=== PATIENT | male | born 1995 | race Caucasian/White ===

== ENCOUNTER 2017-07-15 22:54 | Emergency (ER) | payer BC, OTHER ==
[~2017-07-15] VITALS: Ht 180.3 cm; Wt 80.9 kg
[2017-07-15 23:00] VITALS: TEMP 36.9; Ht 180.3 cm; Wt 80.9 kg
[2017-07-15 23:10] VITALS: O2SAT 98
[2017-07-16 00:10] LABS: BUN/CREATININE RATIO 15.1 (10-20); CALCIUM 8.9 mg/dl (8.5-10.1); CREATININE 1.12 mg/dl (0.60-1.40); POTASSIUM 3.9 mmol/L (3.5-5.1)
--- NOTE | 2017-07-16 06:00 | EMERGENCY ROOM VISIT NOTE ---
History Report prepared by Ingrid: Michelle Carreon Under the Supervision of: Dr. Indira Ralph D.O. First contact with patient: 23:27 Chief Complaint: ALCOHOL OVERDOSE Stated Complaint: ALCOHOL OVERDOSE Nursing Triage Summary: Patient presents S for evaluation of alcohol overdose. Patient was found asleep on a bench. Denies any complaints. Admits to drinking ETOH. Denies drug use. 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 The patient presents to the ED by EMS. He was found sleeping on a park bench. He denies any back pain, abdominal pain, or other complaints. The history is limited due to the patient's intoxication. Patient denies any trauma. States he lay down to sleep. Source of History: patient, nursing staff History Limited By: intoxication Onset: CORPORATE AFFAIRS MANAGER Position: other (global) Quality: other (alcohol intoxication) Timing: other (persistent) Associated Symptoms: No abdominal pain, No back pain Review of Systems Limited due to intoxication. Past Medical & Surgical Medical Problems: (1) No pertinent past medical history Family History No pertinent family history stated. Social History Smoking Status: Never Smoker Occupation Status: [employer] student Current/Historical Medications No Active Prescriptions or Reported Meds Allergies Coded Allergies: No Known Allergies (Unverified , 07/15/17) Physical Exam Vital Signs Date Time Temp Pulse Resp B/P (MAP) Pulse Ox O2 Delivery O2 Flow Rate FiO2 07/16/17 06:14 103 07/16/17 06:06 92 18 150/70 98 Room Air 07/16/17 04:45 87 18 129/68 98 Room Air 07/16/17 03:20 86 18 93/78 98 Room Air 07/16/17 02:10 72 07/16/17 00:08 75 18 122/57 98 Room Air 07/15/17 23:10 98 Room Air 07/15/17 23:07 95 07/15/17 23:00 36.9 86 18 135/89 98 Room Air Physical Exam GENERAL: alert, well appearing, well nourished, no distress, non-toxic EYE EXAM: normal conjunctiva, PERRL and EOM's grossly intact OROPHARYNX: no exudate, no erythema, lips, buccal mucosa, and tongue normal and mucous membranes are moist NECK: supple, no nuchal rigidity, no adenopathy, non-tender LUNGS: Clear to auscultation. Normal chest wall mechanics, no wheezes/rhonchi/ rales HEART: no murmurs, S1 normal and S2 normal, no ecchymosis or crepitus ABDOMEN: abdomen soft, non-tender, normo-active bowel sounds, no masses, no rebound or guarding. BACK: Back is symmetrical on inspection and there is no deformity, no midline tenderness, no CVA tenderness. SKIN: no rashes and no bruising EXTREMITIES: Normal ROM. No deformity. Normal pulses. No evidence of trauma. NEURO EXAM: Normal sensorium, cranial nerves II-XII grossly intact, normal speech, no gross weakness of arms, no gross weakness of legs. Medical Decision & Procedures Laboratory Results 07/15/17 23:10 Test 07/15/17 23:10 Anion Gap 11.0 mmol/L (3-11) Est Creatinine Clear Calc Drug Dose 112.9 ml/min Estimated GFR () 109.8 Estimated GFR (Non- 94.7 BUN/Creatinine Ratio 15.1 (10-20) Calcium Level 8.9 mg/dl (8.5-10.1) Ethyl Alcohol mg/dL 227.0 mg/dl (0-3) Laboratory results per my review. ED Course 2339: The patient was evaluated in room B11A. A complete history and physical exam was performed. 0626: Upon reevaluation, the patient has no complaints. I discussed the findings and the treatment plan with the patient. He verbalizes agreement and understanding. He was discharged home. Medical Decision Differential diagnosis includes etiologies such as alcohol intoxication, toxicologic, infection, hypoglycemia, electrolyte abnormalities, cardiac sources , intracerebral event, neurologic, as well as others were entertained. Patient monitored here and reevaluated. No history to suggest trauma and no evidence of trauma on exam. Discussed with patient appropriate use of alcohol, symptoms to watch and return for, he verbalized understanding was agreeable with plan. Patient and related here with steady gait and was tolerating by mouth prior to discharge. I have low suspicion for any additional traumatic injury. Medication Reconcilliation Current Medication List: was personally reviewed by me Blood Pressure Screening Patient's blood pressure: Normal blood pressure Blood pressure disposition: Did not require urgent referral Impression Primary Impression: Alcohol use with intoxication Scribe Attestation The scribe's documentation has been prepared under my direction and personally reviewed by me in its entirety. I confirm that the note above accurately reflects all work, treatment, procedures, and medical decision making performed by me. Departure Information Dispostion Home / Self-Care Prescriptions No Active Prescriptions or Reported Meds Referrals No Doctor, Assigned (PCP) Patient Instructions My [facility]: [employer] Students and Alcohol Related Visits Additional Instructions Please do not drink until you are 21. If you choose to drink, please drink in a safe location, drink responsibly, and do not drink and drive. If you develop any new or concerning symptoms, please return the emergency room.
[2017-07-16 06:06] VITALS: BP 150/70; O2SAT 98
[2017-07-16 06:14] VITALS: PULSE 103
== END 2017-07-16 06:41 | disposition home or self-care (01) ==
LOC: EDBD 22:54 → C.EDB 22:56
DX: F10.920 Alcohol use, unspecified with intoxication, uncomplicated (principal)

== ENCOUNTER → 2017-12-22 | Outpatient (CLI) | payer BC | END | disposition home or self-care (01) | LOC: C.LABSPEC 14:54 | PROVIDERS: ATTEND Urology | DX: N34.2 Other urethritis (principal) ==

== ENCOUNTER → 2017-12-26 | Outpatient (CLI) | payer BC ==
[~2017-12-26] MED LIST: AZIT500T PO
--- NOTE | 2017-12-26 13:37 | DIAGNOSTIC IMAGING REPORT ---
RENAL ULTRASOUND CLINICAL HISTORY: Urethritis. COMPARISON STUDY: None. TECHNIQUE: Sonography of the kidneys and the urinary bladder was performed. FINDINGS: The right kidney measures 11.2 x 4.2 x 4.3 cm and the left kidney measures 10.5 x 5.8 x 5.4 cm. There is no hydronephrosis. Renal echogenicity, size and cortical thickness are normal. No calculi or masses are identified. Both ureteral jets were visualized. IMPRESSION: Normal renal ultrasound. No hydronephrosis. Electronically signed by: Danny Silva M.D. 12/26/2017 1:35 PM Dictated Date/Time: 12/26/2017 1:34 PM
--- NOTE | 2017-12-26 13:38 | DIAGNOSTIC IMAGING REPORT ---
SCROTAL ULTRASOUND CLINICAL HISTORY: Urethritis. COMPARISON STUDY: None. TECHNIQUE: Grayscale and color and duplex Doppler sonography of the scrotum was performed. FINDINGS: The right testis measures 5 x 1.6 x 2.6 cm and the left measures 4.6 x 2 x 2.6 cm. There is no testicular mass. Color flow within each testis is symmetric. There is no evidence for epididymitis. There is a small left varicocele. IMPRESSION: 1. Normal sonographic appearance of the testes. 2. No evidence of epididymitis. 3. Small left varicocele. Electronically signed by: Danny Silva M.D. 12/26/2017 1:36 PM Dictated Date/Time: 12/26/2017 1:35 PM
== END | disposition home or self-care (01) ==
LOC: C.ULTR 12:58
PROVIDERS: ATTEND Urology
DX: N34.2 Other urethritis (principal)

== ENCOUNTER 2018-01-02 16:32 | Emergency (ER) | payer BC ==
[~2018-01-02] VITALS: Ht 180.3 cm; Wt 78.6 kg
[2018-01-02 16:35] VITALS: TEMP 37.1; Ht 180.3 cm; Wt 78.6 kg
[2018-01-02 18:03] LABS: BASO % 0.2 %; BASO ABS # 0.02 K/uL (0-0.2); EOS % 0.5 %; EOS ABS # 0.05 K/uL (0-0.5); HEMATOCRIT 47.8 % (42-52); HEMOGLOBIN 16.7 g/dL (14.0-18.0); IG# 0.02 K/uL (0.00-0.02); LYMPH % 18.4 %; LYMPH ABS # 1.72 K/uL (1.2-3.4); MEAN CELL VOLUME 83.7 fL (80-100); MEAN CORPUSCULAR HEMOGLOBIN 29.2 pg (25-34); MEAN CORPUSCULAR HGB CONC 34.9 g/dl (32-36); MONO % 6.2 %; MONO ABS # 0.58 K/uL (0.11-0.59); NEUT % 74.5 %; NEUT ABS # 6.98 K/uL (1.4-6.5); PLATELET COUNT 142 K/uL (130-400); RED CELL DISTRIBUTION WIDTH CV 13.1 % (11.5-14.5); RED CELL DISTRIBUTION WIDTH SD 39.5 fL (36.4-46.3); WHITE BLOOD COUNT 9.37 K/uL (4.8-10.8)
[2018-01-02 18:15] LABS: INR 1.1 (0.9-1.1)
[2018-01-02 18:23] LABS: ALBUMIN 4.6 gm/dl (3.4-5.0); ALT/SGPT 21 U/L (12-78); BLOOD UREA NITROGEN 18 mg/dl (7-18); CALCIUM 9.2 mg/dl (8.5-10.1); CARBON DIOXIDE 28 mmol/L (21-32); CREATININE 1.22 mg/dl (0.60-1.40); GLUCOSE 89 mg/dl (70-99); LIPASE 144 U/L (73-393); POTASSIUM 3.6 mmol/L (3.5-5.1); SODIUM 138 mmol/L (136-145)
[2018-01-02 18:34] LABS: ALKALINE PHOSPHATASE 77 U/L (45-117); AST/SGOT 20 U/L (15-37); TOTAL PROTEIN 8.1 gm/dl (6.4-8.2)
[2018-01-02] MEDS ORDERED: AZIT500T PO (19:36)
--- NOTE | 2018-01-02 19:36 | EMERGENCY ROOM VISIT NOTE ---
History First contact with patient: 17:19 Chief Complaint: URINARY SYMPTOMS Stated Complaint: FREQUENT URINATION, COLD SWEATS, ABD DISCOMFORT Nursing Triage Summary: c/o urinary frequency and urgency for the last three weeks Notes groin and lower abdomen pain with loss of appetite States his hands and feet are freezing even though his body is hot History of Present Illness The patient is a 22 year old male who presents to the Emergency Room via private vehicle with complaints of "frequent urination, cold sweats, abdominal discomfort". The patient states that he has been experiencing urinary frequency and urgency for the past 3 weeks. He has had groin and lower abdominal pain with loss of appetite as well. He states also his hands and feet feels as if they are freezing but his body is feeling very warm. He notes that he has been to [place], and urologist. The UA testing has been clean. He states that his urologist gave him doxycycline of which he finished this on Monday night. He states that these urinary symptoms happened after experiencing a urethral swab for retesting for chlamydia. He states that there is also dull pain in the pelvic area, and radiates to the groin region. It is episodic in nature. He also has a bulging pain in the pelvic area with urination which is occasional. It is also more noticeable while sitting. There is no dysuria, hematuria, penile discharge, penile lesions or ulcers. He does note some dribbling after urination. He denies any nausea, vomiting, constipation, diarrhea. Last BM was this morning and normal. There is no fevers other than the chills and the hands and feet region times the past 3-4 days. This is the first this has ever happened. He notes that he had chlamydia in the past. Review of Systems A complete 10-point Review of Systems was discussed with the patient, with pertinent positives and negatives listed in the History of Present Illness. All remaining Review of Systems questions can be considered negative unless otherwise specified. Past Medical/Surgical History Medical Problems: (1) No pertinent past medical history Social History Smoking Status: Current Some Day Smoker Occupation Status: [employer] student Current/Historical Medications Scheduled Azithromycin (Zithromax), 1 TAB PO BID Physical Exam Vital Signs Date Time Temp Pulse Resp B/P (MAP) Pulse Ox O2 Delivery O2 Flow Rate FiO2 01/02/18 20:02 65 18 151/65 98 Room Air 01/02/18 18:24 69 18 150/67 98 Room Air 01/02/18 16:35 37.1 68 16 142/87 99 Room Air Physical Exam VITAL SIGNS - Vital signs and nursing notes were reviewed. Stable. GENERAL -22-year-old male appearing his stated age who is in no acute distress. Communicates well with provider and answers questions appropriately. SKIN - Without rashes. No meningeal or petechial rash. HEAD - NC/AT. EYES - PERRL with EOMI bilaterally. Sclera anicteric. EARS - No deformities of external structures noted on gross examination bilaterally. NOSE - Midline and without cyanosis. No epistaxis or purulent drainage noted. MOUTH/OROPHARYNX - Without perioral cyanosis. Buccal mucosa pink and moist and without leukoplakia. Tongue midline with equal elevation of palate bilaterally. No tonsillar hypertrophy, erythema, or exudates noted. Fair dentition noted. NECK - Neck with FROM. Supple to palpation. No lymphadenopathy noted. No nuchal rigidity. LUNGS - Chest wall symmetric without accessory muscle use, intercostals retractions, or central cyanosis. Normal vesicular breath sounds CTA B/L. No wheezes, rales, or rhonchi appreciated. CARDIAC - RRR with S1/S2. No murmur, rubs, or gallops appreciated. ABDOMEN - Abdominal contour Normal without pulsations or visible masses. BS normoactive all four quadrants. No tenderness, palpable masses, hepatosplenomegaly, or ascites noted. EXTREMITIES - No clubbing or peripheral cyanosis. No pretibial edema present. +5 /5 strength noted in UE/LE bilaterally. The extremities are unremarkable. Excellent pulsatile flow to the extremities. NEUROLOGIC - Cranial nerves II through XII grossly intact. Sensory intact to light touch throughout. PSYCH - A&O, and cooperates fully with examiner. Pt is very pleasant and interacts well with examiner. and rectal: Consent was obtained, penile exam unremarkable. Rectal exam unremarkable. No prostate enlargement. Medical Decision & Procedures Laboratory Results 01/02/18 17:55 Red Blood Count 5.71, Mean Corpuscular Volume 83.7, Mean Corpuscular Hemoglobin 29.2, Mean Corpuscular Hemoglobin Concent 34.9, Mean Platelet Volume 10.0, Neutrophils (%) (Auto) 74.5, Lymphocytes (%) (Auto) 18.4, Monocytes (%) (Auto) 6.2, Eosinophils (%) (Auto) 0.5, Basophils (%) (Auto) 0.2, Neutrophils # (Auto) 6.98, Lymphocytes # (Auto) 1.72, Monocytes # (Auto) 0.58, Eosinophils # (Auto) 0.05, Basophils # (Auto) 0.02 01/02/18 17:55 Test 01/02/18 17:05 01/02/18 17:55 Urine Color YELLOW Urine Appearance TURBID (CLEAR) Urine pH 7.5 (4.5-7.5) Urine Specific Atkins 1.024 (1.000-1.030) Urine Protein NEG (NEG) Urine Glucose (UA) NEG (NEG) Urine Ketones NEG (NEG) Urine Occult Blood NEG (NEG) Urine Nitrite NEG (NEG) Urine Bilirubin NEG (NEG) Urine Urobilinogen NEG (NEG) Urine Leukocyte Esterase NEG (NEG) Urine WBC (Auto) 1-5 /hpf (0-5) Urine RBC (Auto) 0-4 /hpf (0-4) Urine Hyaline Casts (Auto) 1-5 /lpf (0-5) Urine Epithelial Cells (Auto) 0-5 /lpf (0-5) Urine Bacteria (Auto) NEG (NEG) White Blood Count 9.37 K/uL (4.8-10.8) Red Blood Count 5.71 M/uL (4.7-6.1) Hemoglobin 16.7 g/dL (14.0-18.0) Hematocrit 47.8 % (42-52) Mean Corpuscular Volume 83.7 fL (80-100) Mean Corpuscular Hemoglobin 29.2 pg (25-34) Mean Corpuscular Hemoglobin Concent 34.9 g/dl (32-36) Platelet Count 142 K/uL (130-400) Mean Platelet Volume 10.0 fL (7.4-10.4) Neutrophils (%) (Auto) 74.5 % Lymphocytes (%) (Auto) 18.4 % Monocytes (%) (Auto) 6.2 % Eosinophils (%) (Auto) 0.5 % Basophils (%) (Auto) 0.2 % Neutrophils # (Auto) 6.98 K/uL (1.4-6.5) Lymphocytes # (Auto) 1.72 K/uL (1.2-3.4) Monocytes # (Auto) 0.58 K/uL (0.11-0.59) Eosinophils # (Auto) 0.05 K/uL (0-0.5) Basophils # (Auto) 0.02 K/uL (0-0.2) RDW Standard Deviation 39.5 fL (36.4-46.3) RDW Coefficient of Variation 13.1 % (11.5-14.5) Immature Granulocyte % (Auto) 0.2 % Immature Granulocyte # (Auto) 0.02 K/uL (0.00-0.02) Prothrombin Time 12.0 SECONDS (9.0-12.0) Prothromb Time International Ratio 1.1 (0.9-1.1) Activated Partial Thromboplast Time 28.0 SECONDS (21.0-31.0) Partial Thromboplastin Ratio 1.1 Anion Gap 7.0 mmol/L (3-11) Est Creatinine Clear Calc Drug Dose 102.8 ml/min Estimated GFR () 98.3 Estimated GFR (Non- 84.8 BUN/Creatinine Ratio 14.5 (10-20) Calcium Level 9.2 mg/dl (8.5-10.1) Magnesium Level 2.3 mg/dl (1.8-2.4) Total Bilirubin 0.9 mg/dl (0.2-1) Aspartate Amino Transf (AST/SGOT) 20 U/L (15-37) Alanine Aminotransferase (ALT/SGPT) 21 U/L (12-78) Alkaline Phosphatase 77 U/L (45-117) Troponin I < 0.015 ng/ml (0-0.045) Total Protein 8.1 gm/dl (6.4-8.2) Albumin 4.6 gm/dl (3.4-5.0) Globulin 3.5 gm/dl (2.5-4.0) Albumin/Globulin Ratio 1.3 (0.9-2) Lipase 144 U/L (73-393) Thyroid Stimulating Hormone (TSH) 1.780 uIu/ml (0.300-4.500) Lyme Disease IgG Antibody NEG (NEG) Lyme Disease IgM Antibody NEG (NEG) Medical Decision Patient was seen and evaluated as above in room C 10. Review was performed of nursing notes and vital signs. After obtaining a thorough history and physical examination the above work up was performed. Review was performed of the renal ultrasound and scrotum ultrasound. These were essentially negative. He is nontoxic on exam. He notes that after examining his penis there was slight discomfort that had returned. There was no penile masses noted. I did elect to obtain baseline labs. CBC reveals no leukocytosis, or concerning anemia. Coags normal. Metabolic panel does reveal creatinine slightly elevated at 1.22 , troponin negative and TSH normal. UA negative. Lyme testing negative. I did discuss the case with the attending physician, and subsequently the on-call urologist, Dr. Roque. We discussed different medications and the patient case. It is certainly possible he is experiencing residual non-infectious urethritis from potential prior to medial infection, among others. He is to call urology to schedule follow-up for potential cystoscopy. From the emergency department standpoint he does appear to be stable for outpatient management. I will initiate azithromycin 500 mg twice daily 5 days. I offered him Pyridium of which he notes he already has. I did recommend he refrain from sexual contact until he follows with urology for further evaluation and management. Patient was educated upon worrisome symptoms which to return. The patient was educated upon management, had questions answered prior to discharge, and was discharged home in good condition. Case was discussed with the attending physician. In the evaluation and treatment of this patient the following differential diagnoses were entertained: Urethritis, gonorrhea, Razia infection, UTI, hernia, sepsis, among others. He is nontoxic in appearance, and appears stable for outpatient management. Per patient request I did have a thorough discussion with him as well as his father via phone regarding today's findings. He is to follow with urology closely. Impression Primary Impression: Symptoms involving urinary system Departure Information Dispostion Home / Self-Care Condition GOOD Prescriptions Azithromycin (ZITHROMAX) 500 Mg Tab 1 TAB PO BID for 5 Days, #10 TAB Prov: Philip Sood PA-C 01/02/18 Referrals No Doctor, Assigned (PCP) Pavel Roque M.D. Patient Instructions My [facility] Additional Instructions You have been treated in the Emergency Department for symptoms involving the urinary system. You have been prescribed azithromycin to be taken every 12 hours for 5 days. This is an antibiotic. All antibiotics have the potential to cause diarrhea. Stop this medication and contact a medical provider if you were to develop any significant adverse side effects including: wheezing, shortness of breath, passing out, vomiting, or a diffuse rash. Always take antibiotics as directed and COMPLETE the ENTIRE course regardless of the improvement of your symptoms. For pain control, you can use the following [id number] medicines (if >12 yo): - Regular strength (325mg/tab) Tylenol (acetaminophen) 2 tabs every 4-6 hours as needed. Do not exceed 12 tablets in a 24 hour period. Avoid taking more than 3 grams (3000 mg) of Tylenol per day. This includes any other sources of acetaminophen you may take on a regular basis. - Regular strength (200 mg/tab) Advil (ibuprofen) 1-2 tabs every 4-6 hours as needed. Do not exceed a dose of 3200 mg per day. Return to the emergency department if your symptoms worsen despite treatment course outlined above. Drink plenty of water and stay well hydrated. As with any trip to the Emergency Department, you should follow-up with your Primary Care Provider from today's visit. Please call [facility] to schedule follow-up. Return to the emergency department if your symptoms persist despite treatment plan outlined above or if the following symptoms occur: increased fevers, chills , low back pain, nausea/vomiting, or blood in your urine.
[2018-01-02 20:02] VITALS: BP 151/65; PULSE 65; O2SAT 98
== END 2018-01-02 20:07 | disposition home or self-care (01) ==
LOC: C.EDB 16:33 → C.EDC 20:07
DX: R35.0 Frequency of micturition (principal); R39.15 Urgency of urination; R10.30 Lower abdominal pain, unspecified; F17.200 Nicotine dependence, unspecified, uncomplicated